=== PATIENT | male | born 1965 | race Caucasian/White ===

== ENCOUNTER 2017-06-18 07:20 | Day surgery (SDC) | payer OTHER ==
[2017-06-13 16:30] VITALS: BMI 39.7
[2017-06-18] MEDS ORDERED: MIDAZOLAM HCL 2 MG/2 ML SINGLE DOSE VIAL ONE (08:48)
[2017-06-18] MEDS ORDERED: ceFAZolin SODIUM 1 GM VIAL IVPB ONE (08:51)
[2017-06-18] MEDS ORDERED: ceFAZolin SODIUM 1 GM VIAL ONE (09:01)
--- NOTE | 2017-06-18 09:02 | OP ---
Operative Note - Note: Operative Date: 06/18/17 Pre-Operative Diagnosis: Right renal calculus Operation: Right Lithotripsy Findings: 8 mm right renal calculus Post-Operative Diagnosis: Same as Pre-op Surgeon: Ayad Armstrong MD. Anesthesia: General Operative Report Dictated: Yes
[2017-06-18] MEDS ORDERED: oxyCODONE HCL 5 MG TABLET PO PRN (09:18)
[2017-06-18] MEDS ORDERED: ONDANSETRON 4 MG/2 ML VIAL IVPUSH PRN (09:18)
[2017-06-18] MEDS ORDERED: KETOROLAC TROMETHAMINE 30 MG/1 ML VIAL IM PRN (09:19)
[2017-06-18] MEDS ORDERED: LACTATED RINGERS SOLUTION 1,000 ML IV SCH (09:30)
[2017-06-18 09:56] VITALS: TEMP 98
--- NOTE | 2017-06-18 10:30 | OP ---
DATE OF OPERATION: 06/17/2017 PREOPERATIVE DIAGNOSIS: Right renal calculus. POSTOPERATIVE DIAGNOSIS: Right renal calculus. PROCEDURE: Right extracorporeal shock wave lithotripsy. HISTORY: This is a 52-year-old gentleman who on preoperative evaluation was found to have an approximately 7-mm renal calculus. After discussing treatment options including observation, the patient elected to undergo the above-stated procedure. Risks and benefits of treatment and alternative treatments discussed in detail. All questions were answered. BRIEF OPERATIVE NOTE: The patient was brought into the operating room, placed in supine position. The stone was visualized using ultrasonography. Timeout was performed. Intravenous antibiotics were given, and sedation was administered. Approximately 2500 shocks were delivered in electromagnetic fashion. The patient tolerated the procedure well and was brought to recovery room in stable and satisfactory condition. Elliot [id number]
[2017-06-18 10:48] VITALS: BP 117/65; PULSE 55
== END 2017-06-18 10:50 | disposition home or self-care (01) ==
LOC: JASU-SURG 07:20
PROVIDERS: ATTEND Urology
PROC: 0TF3XZZ Fragmentation in Right Kidney Pelvis, External Approach (ICD-10-PCS; principal; 2017-06-18 08:45)
DX: N20.0 Calculus of kidney (principal)
CPT/HCPCS: 94760